=== PATIENT | female | born 1990 | race Hispanic/Latino ===

== ENCOUNTER 2022-04-12 18:39 | Emergency (ER) | payer BC, MEDICAID ==
[~2022-04-12] VITALS: Ht 149.9 cm; Wt 61.7 kg
[2022-04-12] MEDS ORDERED: SULFAMETHOX-TMP DS 800/160 TAB PO SCH (21:30)
[2022-04-12] MEDS ORDERED: IBUP-2070 PO (21:42)
[2022-04-12] MEDS ORDERED: SULF1TAB42 PO (21:42)
[2022-04-12 21:54] VITALS: BP 111/72
== END 2022-04-12 21:54 | disposition home or self-care (01) ==
LOC: EDH 18:39
DX: L02.01 Cutaneous abscess of face (principal); J45.909 Unspecified asthma, uncomplicated; Z98.890 Other specified postprocedural states
CPT/HCPCS: 10060